=== PATIENT | female | born 1995 | race Caucasian/White ===

== ENCOUNTER 2019-06-05 20:19 | Emergency (ER) | payer BC ==
[~2019-06-05] VITALS: Ht 180.3 cm; Wt 113.6 kg
[2019-06-05 20:29] VITALS: BP 145/90; TEMP 97.9
[2019-06-05 22:03] VITALS: PULSE 90
== END 2019-06-05 22:04 | disposition home or self-care (01) ==
LOC: COL.ER 20:19
DX: S62.623A Displaced fracture of middle phalanx of left middle finger, initial encounter for closed fracture (principal); W23.0XXA Caught, crushed, jammed, or pinched between moving objects, initial encounter; Y92.511 Restaurant or cafe as the place of occurrence of the external cause